=== PATIENT | female | born 1990 ===

== ENCOUNTER 2019-03-21 16:50 | Outpatient (REF) | payer MEDICAID, SELFPAY ==
[2019-03-21 20:42] LABS: HCT 40.6 % (36.0-46.0); HGB 13.6 g/dL (12.0-15.5); Mean Corp. HGB Concentration 33.5 g/dL (32.0-36.0); Mean Corpuscular Hemoglobin 29.4 pg (27.0-33.0); Mean Corpuscular Volume 87.7 fL (80-95); Mean Platelet Volume 10.9 fL (8.0-11.0); Platelet Count 267 x1000/uL (130-400); RBC 4.63 m/cumm (4.00-5.20); RBC Distribution Width 12.4 % (11.7-14.6); White Blood Cell Count 16.91 k/cumm (4.4-10.8)
[2019-03-21 20:50] LABS: ALT 21 U/L (12-78); AST 16 U/L (15-37); Albumin 3.7 g/dL (3.4-5.0); Alkaline Phosphatase 97 U/L (46-116); Anion Gap 11.2 mmol/L (3-11); BUN 9 mg/dL (7-18); Bilirubin, Total 0.7 mg/dL (0.2-1.0); CO2 24.8 mmol/L (21.0-32.0); CREATININE 0.83 mg/dL (0.55-1.02); Calcium 9.1 mg/dL (8.5-10.1); Chloride 101 mmol/L (98-107); Glucose 116 mg/dL (70-100); Potassium 4.2 mmol/L (3.5-5.1); Sodium 137 mmol/L (136-145); Total Protein 6.9 g/dL (6.4-8.2)
[2019-03-21 21:03] LABS: Amylase 406 U/L (25-115)
[2019-03-23 16:23] LABS: Misc Referral See Comments
[2019-03-26 17:22] LABS: Index Value 0.28 (0.00-0.79); Mumps Ab, IgG Positive; Mumps Ab, IgM Negative (Negative)
== END 2019-03-21 17:10 ==
LOC: NCHCN 16:50
PROVIDERS: Visit Provider Physician Assistant Medical
DX: K11.8 Other diseases of salivary glands (principal)
CPT/HCPCS: 80053; 83735; 85027; 86735; 82150

== ENCOUNTER 2020-09-02 10:36 | Outpatient (REF) | payer SELFPAY ==
[2020-09-06 11:24] LABS: Patient Race White; SARS-CoV-2 RNA Undetected (Undetected); SARS-CoV-2 Specimen Source Nasal
== END 2020-09-02 10:56 ==
LOC: NCHCN 10:36
PROVIDERS: PCP Physician Assistant; Visit Provider Physician Assistant
DX: Z20.828 Contact with and (suspected) exposure to other viral communicable diseases (principal)
CPT/HCPCS: U0003

== ENCOUNTER 2021-10-06 16:20 | Outpatient (REF) | payer MEDICAID, SELFPAY ==
[2021-10-06 21:38] LABS: Anion Gap 10.7 mmol/L (3-11); BUN 12 mg/dL (7-18); CO2 23.3 mmol/L (21.0-32.0); CREATININE 0.6 mg/dL (0.55-1.02); Calcium 8.7 mg/dL (8.5-10.1); Chloride 105 mmol/L (98-107); Glucose 84 mg/dL (74-106); Potassium 4.2 mmol/L (3.5-5.1); Sodium 139 mmol/L (136-145); Uric Acid 4.2 mg/dL (2.6-6.0)
== END 2021-10-06 16:21 | disposition home or self-care (01) ==
LOC: NCHCN 16:20
PROVIDERS: PCP Physician Assistant; Visit Provider Physician Assistant
DX: M79.672 Pain in left foot (principal)
CPT/HCPCS: 80048; 84550